=== PATIENT | female | born 1980 | race Hispanic/Latino ===

== ENCOUNTER 2019-03-21 14:55 | Emergency (ER) | payer SELFPAY | END 2019-03-21 18:33 | disposition home or self-care (01) | LOC: ERS 14:55 | DX: L02.212 Cutaneous abscess of back [any part, except buttock and flank] (principal) | CPT/HCPCS: 10060; 87070; 87077; 87186; 87205 ==

== ENCOUNTER 2021-09-24 15:50 | Emergency (ER) | payer SELFPAY ==
[~2021-09-24 15:50] MED LIST: ISOVUE-370 76%-LOCM 1 ML ONE
[2021-09-24 16:26] LABS: #Eosinphils 0.1 thou/uL (0.0-0.7); #Lymphocytes 2.2 thou/uL (1.20-3.40); #Neutrophils 13.6 thou/uL (1.40-6.50); %Basophils 0.2 % (0.0-1.0); %Eosinophils 0.3 % (0.0-10.0); %Lymphocytes 13.1 % (21.0-51.0); %Monocytes 6.1 % (0.0-10.0); %Neutrophils 80.4 % (42.0-75.0); Hemoglobin 13.2 g/dL (12.0-16.0); Mean Corpuscular HGB CONC 33.3 g/dL (32.0-36.0); Mean Corpuscular Hemoglobin 34.3 pg (27.0-31.0); Mean Platelet Volume 7.3 fL (7.4-10.4); Platelet Count 289 thou/uL (130-400); RBC Distribution Width 11.8 % (11.5-14.5); Red Blood Cell (RBC) Count 3.85 mill/uL (4.20-5.40); White Blood Cell (WBC) Count 16.9 thou/uL (4.8-10.8)
[2021-09-24 16:43] LABS: ALT (SGPT) 27 U/L (8-55); AST (SGOT) 20 U/L (5-34); Albumin 3.8 g/dL (3.5-5.0); Alkaline Phosphatase 88 U/L (40-110); Anion Gap 12 mmol/L (10-20); BUN (Urea Nitrogen) 10 mg/dL (7.0-18.7); Bilirubin, Total 1.8 mg/dL (0.2-1.2); Calc. Creatinine Clearance 0 mL/min (70-130); Calcium 9.1 mg/dL (7.8-10.44); Carbon Dioxide 27 mmol/L (22-29); Chloride 103 mmol/L (98-107); Globulin 3.2 g/dL (2.4-3.5); Glucose 99 mg/dL (70-105); Lipase 21 U/L (8-78); Potassium 3.5 mmol/L (3.5-5.1); Sodium 138 mmol/L (136-145)
[2021-09-24 19:05] LABS: Pregnancy Test - Urine (BHCG) Negative (Negative); Pregu Control Background? CLEAR/WHITE (CLR/WHITE); Pregu Control Bar Appear? YES (CONTROL BAR); Specific Gravity 1.046 (1.002-1.036)
[2021-09-24 19:06] LABS: Bacteria/HPF None Seen HPF (None Seen); Bilirubin 1+ (Negative); Blood, Urine 1+ (Negative); Clarity Clear (Clear); Glucose, Urine (Dipstick) 30 mg/dL (Negative); Ketone, Urine Trace mg/dL (Negative); Leukocyte Negative Leu/uL (Negative); Nitrite Negative (Negative); Protein, Urine (Dipstick) 50 mg/dL (Neg-Trace); RBC/HPF 21-50 HPF (0-3); Specific Gravity, Urine 1.046 (1.002-1.036); Urobilinogen Greater than 12 mg/dL (Less than 2)
[2021-09-24] MEDS ORDERED: Ketorolac Tromethamine 30 MG/ML VIAL ONE (20:15)
[2021-09-24] MEDS ORDERED: Acetaminophen 500 MG TAB ONE (20:15)
[2021-09-24] MEDS ORDERED: Lidocaine 1% PF 5 ML VIAL ONE (21:56)
[2021-09-24] MEDS ORDERED: cefTRIAXone\\ROCEPHIN 500 MG VIAL ONE (21:56)
== END 2021-09-24 22:29 | disposition home or self-care (01) ==
LOC: ERS 15:50
DX: R10.32 Left lower quadrant pain (principal)
CPT/HCPCS: 36415; 74177; 76856; 80053; 81003; 81015; 81025; 83690; 85025; 87480; 87491; 87510; 87591; 87660; 96372; 96374; J0696; J1885; Q9966

== ENCOUNTER 2021-10-09 09:47 | Outpatient (CLI) | payer MEDICAID | END 2021-10-09 09:48 | disposition home or self-care (01) | LOC: BICMAMMO 09:47 | PROVIDERS: ATTEND Family Medicine | DX: Z12.31 Encounter for screening mammogram for malignant neoplasm of breast (principal) | CPT/HCPCS: 77067 ==

== ENCOUNTER 2022-03-05 10:33 | Emergency (ER) | payer BC ==
[2022-03-05] MEDS ORDERED: Ketorolac Tromethamine 30 MG/ML VIAL ONE (11:39)
== END 2022-03-05 13:30 | disposition home or self-care (01) ==
LOC: ERS 10:33
DX: S39.012A Strain of muscle, fascia and tendon of lower back, initial encounter (principal); X50.0XXA Overexertion from strenuous movement or load, initial encounter
CPT/HCPCS: 96372; 99283; J1885

== ENCOUNTER 2022-11-02 18:44 | Emergency (ER) | payer OTHER ==
[2022-11-02] MEDS ORDERED: Metoclopramide HCl 10 MG TAB ONE (20:08)
[2022-11-02] MEDS ORDERED: Metoclopramide HCl 10 MG/2 ML VIAL ONE (20:08)
[2022-11-02] MEDS ORDERED: Ketorolac Tromethamine 30 MG/ML VIAL ONE (20:08)
[2022-11-02] MEDS ORDERED: Acetaminophen 500 MG TAB ONE ×2 (20:08→20:17)
== END 2022-11-02 21:40 | disposition home or self-care (01) ==
LOC: ERS 18:44
DX: R51.9 Headache, unspecified (principal)
CPT/HCPCS: 96365; 96375; J1885; J2765

== ENCOUNTER 2022-12-23 13:22 | Emergency (ER) | payer OTHER ==
[2022-12-23] MEDS ORDERED: Ketorolac Tromethamine 30 MG/ML VIAL ONE (14:39)
== END 2022-12-23 15:24 | disposition home or self-care (01) ==
LOC: ERS 13:22
DX: M54.9 Dorsalgia, unspecified (principal); F17.290 Nicotine dependence, other tobacco product, uncomplicated
CPT/HCPCS: 96372; 99283; J1885

== ENCOUNTER 2023-02-28 14:13 | Emergency (ER) | payer OTHER ==
[2023-02-28] MEDS ORDERED: Dexamethasone 10 MG/ML VIAL ONE (16:02)
== END 2023-02-28 17:05 | disposition home or self-care (01) ==
LOC: ERS 14:13
DX: J06.9 Acute upper respiratory infection, unspecified (principal); Z79.899 Other long term (current) drug therapy
CPT/HCPCS: 87081; 87430; 99283; J1100

== ENCOUNTER 2023-03-27 21:37 | Emergency (ER) | payer OTHER | END 2023-03-28 00:06 | disposition home or self-care (01) | LOC: ERS 21:37 | DX: M79.604 Pain in right leg (principal); G43.909 Migraine, unspecified, not intractable, without status migrainosus; Z79.899 Other long term (current) drug therapy ==

== ENCOUNTER 2024-02-12 18:47 | Emergency (ER) | payer OTHER ==
[2024-02-12] MEDS ORDERED: Ketorolac Tromethamine 30 MG (1 mL) VIAL ONE (22:11)
== END 2024-02-12 22:43 | disposition home or self-care (01) ==
LOC: ERS 18:47
DX: S86.911A Strain of unspecified muscle(s) and tendon(s) at lower leg level, right leg, initial encounter (principal); X50.3XXA Overexertion from repetitive movements, initial encounter; X50.9XXA Other and unspecified overexertion or strenuous movements or postures, initial encounter; Y92.89 Other specified places as the place of occurrence of the external cause; Y99.0 Civilian activity done for income or pay
CPT/HCPCS: 96372; J1885

== ENCOUNTER 2024-11-10 16:01 | Emergency (ER) | payer OTHER, SELFPAY | END 2024-11-10 18:14 | disposition home or self-care (01) | LOC: ERS 16:01 | DX: H11.32 Conjunctival hemorrhage, left eye (principal) | CPT/HCPCS: 99282 ==

== ENCOUNTER 2025-02-15 15:24 | Emergency (ER) | payer OTHER | END 2025-02-15 17:08 | LOC: ERS 15:24 | DX: Z53.21 Procedure and treatment not carried out due to patient leaving prior to being seen by health care provider (principal) ==